=== PATIENT | female | born 1945 | race Caucasian/White ===

== ENCOUNTER 2021-06-23 10:12 | Emergency (ER) | payer MEDICARE ==
[2021-06-23 13:25] LABS: BASOPHIL 0.9 % (0-2); EOSINOPHIL 2.3 % (0-7); HCT 42.8 % (37.0-47.0); HGB 13.7 g/dl (12.5-16.0); LYMPHOCYTE 38.2 % (15-48); MCH 30.2 pg (25.0-31.0); MCV 94.3 fL (78.0-100.0); MONOCYTE 9.3 % (0-12); MPV 9.3 fL (6.0-9.5); NEUTROPHIL 48.9 % (41-80); NRBC 0; PLT 245 K/uL (150-400); RBC 4.54 M/uL (4.20-5.40); RDW 15.2 % (11.5-14.0); WBC 7.9 K/uL (4.0-10.5)
[2021-06-23 13:26] LABS: BILIRUBIN NEGATIVE (NEGATIVE); BLOOD NEGATIVE Ery/uL (NEGATIVE); CLARITY CLEAR (CLEAR); COLOR YELLOW (YELLOW); GLUCOSE (U) NORMAL (NORMAL); LEUKOCYTES NEGATIVE Leu/uL (NEGATIVE); NITRITE NEGATIVE (NEGATIVE); PROTEIN NEGATIVE (NEGATIVE); SPECIFIC GRAVITY 1.025 (1.001-1.030); UROBILINOGEN 0.2 mg/dL (0.2-1.0)
[2021-06-23 13:40] LABS: BUN/CREAT RATIO (CALC) 21.9 RATIO; CREATININE 0.64 mg/dL (0.51-0.95); POTASSIUM 3.8 mmol/L (3.5-5.1)
[2021-06-23 14:02] LABS: INR 1.13 (0.9-1.2); PROTHROMBIN TIME 13.9 SECONDS (11.8-13.4); PTT 30.4 SECONDS (24.4-34.7)
[2021-06-23 14:04] LABS: D-DIMER 0.47 ug/mLFEU (0.00-0.41)
[2021-06-23 14:16] LABS: LACTIC ACID 0.6 mmol/L (0.4-1.9)
[2021-06-23 14:27] LABS: INFLUENZA A NAA NEGATIVE (NEGATIVE)
[2021-06-23 14:29] LABS: CORONAVIRUS 2019 SARS-COV-2 POSITIVE (NEGATIVE)
== END 2021-06-23 16:00 | disposition home or self-care (01) ==
LOC: FER 10:12
PROVIDERS: Nurse Practitioner Family
DX: U07.1 COVID-19 (principal); I10 Essential (primary) hypertension
CPT/HCPCS: 36415; 71045; 80048; 81003; 83605; 83880; 84145; 84484; 85025; 85379; 85610; 85730; 87040; 93005; U0002

== ENCOUNTER 2021-10-20 17:04 | Day surgery (SDCO) | payer MEDICARE ==
[~2021-10-20] VITALS: Ht 160 cm; Wt 118.4 kg
[2021-10-20 18:12] LABS: BASOPHIL 0.7 % (0-2); HCT 46.2 % (37.0-47.0); HGB 14.6 g/dl (12.5-16.0); LYMPHOCYTE 17.1 % (15-48); MCH 29.6 pg (25.0-31.0); MCHC 31.6 g/dL (32.0-36.0); MCV 93.7 fL (78.0-100.0); MONOCYTE 7.5 % (0-12); MPV 9.1 fL (6.0-9.5); NEUTROPHIL 73.3 % (41-80); NRBC 0; PLT 257 K/uL (150-400); RBC 4.93 M/uL (4.20-5.40); RDW 16.1 % (11.5-14.0); WBC 12.1 K/uL (4.0-10.5)
[2021-10-20 18:35] LABS: ALBUMIN 4.2 g/dL (3.4-5.0); BILIRUBIN - TOTAL 1.1 mg/dL (0.2-1.0); BUN/CREAT RATIO (CALC) 32.4 RATIO; CREATININE 0.68 mg/dL (0.51-0.95); GLOBULIN (CALCULATION) 4.1 g/dL; POTASSIUM 3.7 mmol/L (3.5-5.1); TOTAL PROTEIN 8.3 g/dL (6.4-8.2)
[2021-10-20 18:43] LABS: LACTIC ACID 1.1 mmol/L (0.4-1.9)
[2021-10-20 20:08] LABS: INR 1.13 (0.9-1.2); PROTHROMBIN TIME 13.9 SECONDS (11.8-13.4); PTT 29.7 SECONDS (24.4-34.7)
[2021-10-20 21:14] LABS: BILIRUBIN NEGATIVE (NEGATIVE); BLOOD NEGATIVE Ery/uL (NEGATIVE); CLARITY CLEAR (CLEAR); COLOR YELLOW (YELLOW); GLUCOSE (U) NORMAL (NORMAL); LEUKOCYTES NEGATIVE Leu/uL (NEGATIVE); NITRITE NEGATIVE (NEGATIVE); PROTEIN NEGATIVE (NEGATIVE); UROBILINOGEN 0.2 mg/dL (0.2-1.0); pH 7.5 (5.0-9.0)
[2021-10-20] MEDS ORDERED: CYMBALTA 30MG C30 MG PO (23:39)
[2021-10-20] MEDS ORDERED: NORVASC5 MG PO (23:39)
[2021-10-20] MEDS ORDERED: GLUCOTROL XL5 MG PO (23:39)
[2021-10-20] MEDS ORDERED: BACLOFEN 20MG T20 MG PO (23:40)
[2021-10-20] MEDS ORDERED: PRINIVIL20 MG PO (23:40)
[2021-10-20] MEDS ORDERED: COLESTID 1GM TAB1 GM PO (23:41)
[2021-10-20] MEDS ORDERED: ACTOS45 MG PO (23:42)
[2021-10-20] MEDS ORDERED: OMEPRAZOLE 20MG20 MG PO (23:43)
[2021-10-20] MEDS ORDERED: NAPROXEN500 MG PO (23:43)
[2021-10-20] MEDS ORDERED: NEURONTIN300 MG PO (23:44)
[2021-10-20] MEDS ORDERED: BUSPAR5 MG PO (23:44)
[2021-10-20] MEDS ORDERED: PERCOCET 10-321 EACH PO (23:45)
[2021-10-20] MEDS ORDERED: COMPLEX B-1001 EACH PO (23:46)
[2021-10-20] MEDS ORDERED: FLONASE ALLER15.8 ML (23:47)
[2021-10-20] MEDS ORDERED: VITAMIN C WIT1000 MG PO (23:47)
[2021-10-20] MEDS ORDERED: VITAMIN D310 MC3 PO (23:51)
[2021-10-21 00:24] LABS: BILIRUBIN NEGATIVE (NEGATIVE); BLOOD TRACE-INTACT Ery/uL (NEGATIVE); CLARITY CLEAR (CLEAR); COLOR YELLOW (YELLOW); GLUCOSE (U) NORMAL (NORMAL); LEUKOCYTES NEGATIVE Leu/uL (NEGATIVE); NITRITE NEGATIVE (NEGATIVE); PROTEIN NEGATIVE (NEGATIVE); UROBILINOGEN 0.2 mg/dL (0.2-1.0); pH 7.5 (5.0-9.0)
[2021-10-21 00:37] LABS: BACTERIA TRACE
[2021-10-21 06:47] LABS: BASOPHIL 0.5 % (0-2); EOSINOPHIL 0.3 % (0-7); HCT 36.6 % (37.0-47.0); HGB 11.7 g/dl (12.5-16.0); LYMPHOCYTE 22.2 % (15-48); MCH 30.4 pg (25.0-31.0); MCV 95.1 fL (78.0-100.0); MONOCYTE 7.4 % (0-12); MPV 9.5 fL (6.0-9.5); NEUTROPHIL 69.1 % (41-80); NRBC 0; PLT 213 K/uL (150-400); RBC 3.85 M/uL (4.20-5.40); RDW 16.2 % (11.5-14.0); WBC 12.8 K/uL (4.0-10.5)
[2021-10-21 07:07] LABS: BUN/CREAT RATIO (CALC) 23.9 RATIO; CREATININE 0.67 mg/dL (0.51-0.95); POTASSIUM 3.9 mmol/L (3.5-5.1)
== END 2021-10-21 15:25 | disposition home or self-care (01) ==
LOC: FER 17:04 → FAS 20:11 → FMS 22:59
PROVIDERS: Internal Medicine; Nurse Practitioner Family; ADMIT Student in an Organized Health Care Education/Training Program
DX: K35.80 Unspecified acute appendicitis (principal); I10 Essential (primary) hypertension; G89.29 Other chronic pain; E11.9 Type 2 diabetes mellitus without complications; K21.9 Gastro-esophageal reflux disease without esophagitis; J44.9 Chronic obstructive pulmonary disease, unspecified; I51.7 Cardiomegaly; I25.10 Atherosclerotic heart disease of native coronary artery without angina pectoris; J84.10 Pulmonary fibrosis, unspecified; Z85.828 Personal history of other malignant neoplasm of skin; Z20.822 Contact with and (suspected) exposure to COVID-19
CPT/HCPCS: 36415; 80048; 80053; 81001; 81003; 82150; 83605; 83690; 84145; 85025; 85610; 85730; 94010; G0378; J1644; J2270; J2405; J2543; J2704; J3010; J7030; Q9967; U0002